=== PATIENT | male | born 1970 | race Native Hawaiian/Other Pacific Islander ===

== ENCOUNTER 2020-11-27 17:41 | Emergency (ER) | payer OTHER ==
[~2020-11-27] VITALS: Ht 190.5 cm; Wt 140.6 kg
[2020-11-27 18:58] LABS: PLATELET COUNT 211 K/uL (142-355)
[2020-11-27 19:06] LABS: POTASSIUM 3.8 mmol/L (3.6-5.2)
[2020-11-27 21:25] VITALS: BP 163/92; TEMP 98.3
== END 2020-11-27 21:25 | disposition home or self-care (01) ==
LOC: ED 17:41
PROVIDERS: Emergency Medicine Emergency Medical Services
DX: R10.32 Left lower quadrant pain (principal); G62.9 Polyneuropathy, unspecified
CPT/HCPCS: 36415; 80053; 81000; 85027; 87040; 93005; 96360; 96361; 96372; 96375; 99284; J2270; J2405; Q9963